=== PATIENT | female | born 1985 | race Caucasian/White ===

== ENCOUNTER 2016-11-13 15:18 | Emergency (ER) | payer SELFPAY ==
[~2016-11-13] VITALS: Ht 165.1 cm; Wt 90.7 kg
[~2016-11-13 15:18] MED LIST: COL100 PO; FLAGYL500 MG PO; LAC PO; NORCO1 TA2 PO
[2016-11-13 16:28] VITALS: BP 107/68
== END 2016-11-13 16:28 | disposition home or self-care (01) ==
LOC: ED 15:18
DX: H66.92 Otitis media, unspecified, left ear (principal)

== ENCOUNTER 2017-05-04 16:01 | Emergency (ER) | payer MEDICAID ==
[2017-05-04 17:51] VITALS: BP 129/55
== END 2017-05-04 17:51 | disposition home or self-care (01) ==
LOC: ED 16:01
DX: S39.011A Strain of muscle, fascia and tendon of abdomen, initial encounter (principal); X58.XXXA Exposure to other specified factors, initial encounter; Y93.89 Activity, other specified; Y92.89 Other specified places as the place of occurrence of the external cause; Y99.8 Other external cause status

== ENCOUNTER 2017-05-25 20:47 | Emergency (ER) | payer MEDICAID ==
[2017-05-25 21:09] VITALS: BP 105/72
[2017-05-26] MEDS ORDERED: FER300 PO (14:50)
[2017-05-26] MEDS ORDERED: VITC PO (14:51)
== END 2017-05-25 22:29 | disposition left against medical advice (07) ==
LOC: ED 20:47
DX: Z53.21 Procedure and treatment not carried out due to patient leaving prior to being seen by health care provider (principal)

== ENCOUNTER 2017-05-25 23:26 | Inpatient (IN) | payer MEDICAID ==
[~2017-05-25] VITALS: Ht 162.6 cm; Wt 91.3 kg
[2017-05-26 00:56] LABS: BASOPHIL % 0.4 % (0-2); PLATELET COUNT 342 x10^3mcL (130-400)
[2017-05-26 00:58] LABS: UA SPECIFIC GRAVITY >=1.030 (1.005-1.035); microscopic required? YES; urine erythrocyte 3+ (NEGATIVE)
[2017-05-26 02:51] LABS: CALCIUM 8.3 mg/dL (8.5-10.1); CARBON DIOXIDE 29.2 mmol/L (21-32); CHLORIDE SERUM 104 mmol/L (98-107); CREATININE SERUM 0.6 mg/dL (0.6-1.0); GFR1 > 60 mL/min; GLUCOSE SERUM 101 mg/dL (74-106); POTASSIUM SERUM 3.4 mmol/L (3.5-5.1); SODIUM SERUM 141 mmol/L (136-145)
[2017-05-26 02:56] LABS: ALBUMIN 3.1 g/dL (3.4-5.0); ALKALINE PHOSPHATASE 69 U/L (46-116); ALT/SGPT 18 U/L (14-59); AST/SGOT 16 U/L (15-37); BILIRUBIN TOTAL 0.27 mg/dL (0.20-1.00); TOTAL PROTEIN, SERUM 6.8 g/dL (6.4-8.2)
[2017-05-26 04:22] VITALS: BP 113/55
[2017-05-26 04:34] VITALS: BP 113/55
[2017-05-26 04:59] LABS: CHOLESTEROL/HDL RATIO 3.8; MAGNESIUM 1.7 mg/dL (1.8-2.4); PHOSPHOROUS 4.3 mg/dL (2.5-4.9)
[2017-05-26 05:01] LABS: AMPHETAMINE QUAL UR POSITIVE (NEG <=1000)
[2017-05-26 05:03] LABS: T3 TOTAL 1.03 ng/mL
[2017-05-26 05:08] LABS: FREE T4 0.85 ng/dL (0.76-1.46); FREE THYROXINE INDEX 2.3 ug/dL (1.4-4.5); T4(THYROXINE) 6.4 ug/dL (4.7-13.3)
[2017-05-26 08:42] VITALS: BP 107/68
[2017-05-26 12:15] VITALS: BP 106/76
[2017-05-26 13:52] LABS: BASOPHIL % 0.4 % (0-2); PLATELET COUNT 300 x10^3mcL (130-400)
[2017-05-26 13:53] LABS: RED CELL DISTRIBUTION WIDTH 16.9 % (11.5-14.5)
[2017-05-26] MEDS ORDERED: FER300 PO (14:50)
[2017-05-26] MEDS ORDERED: VITC PO (14:51)
[2017-05-26 15:14] VITALS: BP 106/76
== END 2017-05-26 20:29 | disposition home or self-care (01) | DRG 561 ==
LOC: ED 23:26 → DU 05-26 03:37
PROVIDERS: Emergency Medicine; Family Medicine Sports Medicine; ADMIT Family Medicine
DX: O72.2 Delayed and secondary postpartum hemorrhage (principal); N17.0 Acute kidney failure with tubular necrosis; O90.81 Anemia of the puerperium; D62 Acute posthemorrhagic anemia; O25.3 Malnutrition in the puerperium; E87.6 Hypokalemia; F15.10 Other stimulant abuse, uncomplicated; F12.10 Cannabis abuse, uncomplicated; O99.215 Obesity complicating the puerperium; E66.9 Obesity, unspecified; Z68.34 Body mass index [BMI] 34.0-34.9, adult
CPT/HCPCS: 84439; J3475; J7030

== ENCOUNTER 2017-05-27 15:49 | Inpatient (IN) | payer MEDICAID ==
[~2017-05-27] VITALS: Ht 162.6 cm; Wt 96.2 kg
[~2017-05-27 15:49] MED LIST changes: +FER300 PO; +VITC PO
--- NOTE | 2017-05-27 15:58 | NUR ---
PT WHEELED BACK FROM TRIAGE COOL, PALE, DIAPHORETIC. PT GAVE 3 WEEKS AGO AND HAD ONLY BEEN SPOTTING SINCE GIVING UNTIL Tuesday05/25/17 WHEN PT BEGAN PASSING CLOTS AND "A LOT OF BLOOD" PER PTS FATHER. PT CAME IN TO [facility] [place] [facility] AND WAS ADMITTED. PER PT BLEEDING STOPPED TUESDAY AND WAS D/C'ED FROM [facility] [place] TUESDAY. PT REPORTS TODAY SHE WAS SLEEPING AND WOKE UP SUDDENLY WHEN BLEEDING BEGAN AGAIN. PT REPORTS GOING THROUGH 3 DIAPERS IN AN HOUR BEFORE COMING IN TO [facility] [place] ED AGAIN. UPON ARRIVAL PT HAD PASSED MANY LARGE CLOTS, WAS HYPOTENSIVE, WEAK, AND FATUGUED. PT DENIES ALL PAIN, BUT STATES, "I FELT WEAK AND TIRED." PT DENIES CP, DENIES ABD PAIN, DENIES SOB, DENIES N/V. CLOTHES CUT OFF, CHANGED INTO GOWN, CONNECTED TO OXYGEN AND CARDIORESP MONITORS, DR SMITH AT BEDSIDE FOR MSE AND EVAL AND IMMEDIATE TREATMENT.
--- NOTE | 2017-05-27 16:22 | NUR ---
DR SMITH PERFORMING PELVIC AT BEDSIDE. MANY LARGE CLOTS PULLED FROM VAGINAL CANAL, BLEEDING SLOWED AFTER CLOT REMOVAL.
--- NOTE | 2017-05-27 16:45 | NUR ---
LAB AT BEDSIDE FOR BLOOD DRAW.
[2017-05-27 16:53] LABS: BASOPHIL % 0.5 % (0-2); PLATELET COUNT 277 x10^3mcL (130-400)
[2017-05-27 17:02] LABS: RED CELL DISTRIBUTION WIDTH 17.3 % (11.5-14.5)
--- NOTE | 2017-05-27 17:02 | NUR ---
BLOOD TRANSFUSION STARTED, DUAL VERIFICATION WITH AWA MARTINEZ RN. PRE VITALS @ 1700: BP 97/51, HR 83, RESP 23, SAT 98% ON OXYGEN, TEMP 97.8 ORAL
--- NOTE | 2017-05-27 17:17 | NUR ---
15 MINUTES AFTER START OF TRANSFUSION VITALS @ 1715: BP 85/54, HR 80, RR 20, SAT 99% ON OXYGEN, TEMP 97.7 ORAL PT DENIES ANY ITCHINESS, DENIES SOB, DENIES FEELING FLUSHED. STATES "I'M STILL JUST TIRED." DENIES PAIN.
--- NOTE | 2017-05-27 17:17 | NUR ---
15 MINUTES AFTER START OF TRANSFUSION VITALS @ 1717: BP 85/54, HR 80, RR 20, SAT 99% ON OXYGEN, TEMP 97.7 ORAL PT DENIES ANY ITCHINESS, DENIES SOB, DENIES FEELING FLUSHED. STATES "I'M STILL JUST TIRED." DENIES PAIN.
--- NOTE | 2017-05-27 17:20 | NUR ---
US AT BEDSIDE.
--- NOTE | 2017-05-27 17:35 | NUR ---
RESIDENT FINALLY CALLED BACK & WAS NOTIFIED OF PT'S CONDITION. RESIDENT TOLD DR SMITH THAT THEY WILL TRY TO GET A HOLD OF DR. STANTON. DR STANTON FINALLY CALLED BACK & SPOKE W/ DR SMITH & WAS INFORMED OF BLOOD LOSS, CLOTS, LOW BP & THAT PT IS RECEIVING BLOOD. DR. STANTON WOULD LIKE TO BE CALLED BACK W/ OFFICIAL ULTRASOUND REPORT. [facility] ENGINEER NOTIFIED OF ABOVE.
--- NOTE | 2017-05-27 17:55 | NUR ---
CALL FROM DR. EDMONDS, ANESTHESIA. I UPDATED HER ON PT'S BLOOD LOSS/CLOTS, CURRENT VITALS & FACT THAT PT IS RECEIVING TRANSFUSION. I ALSO LET HER KNOW THAT WE SPOKE W/ DR. STANTON BUT HE IS WAITING FOR OFFICIAL ULTRASOUND REPORT.
--- NOTE | 2017-05-27 18:01 | NUR ---
BLOOD ADMINISTRATION COMPLETE VITALS @ 1801: BP 101/55, HR 80, RR 20, SAT 98% ON OXYGEN, TEMP 97.7 ORAL PT DENIES ITCHINESS, DENIES CP, DENIES SOB, DENIES LEWIS. PT RESTING COMFORTABLY.
--- NOTE | 2017-05-27 18:20 | NUR ---
DR. SMITH CALLED DR. STANTON W/ OFFICIAL ULTRASOUND REPORT. NO PLANS FOR SURGERY. TRIED CALLING OR; NO ANSWER. CALLED [facility] & LET HER KNOW WHAT DR. STANTON SAID & THAT I WAS NOT ABLE TO GET A HOLD OF SURGERY TO LET THEM KNOW THAT PT IS NOT GOING TO OR. I ALSO NOTIFIED [facility] THAT WE HAVE PAGE OUT TO RESIDENT REQUEST THAT PT BE ADMITTED TO ICU, NOT TELE.
--- NOTE | 2017-05-27 18:20 | NUR ---
LAB AT BEDSIDE FOR BLOOD DRAW.
[2017-05-27 19:05] LABS: MAGNESIUM 1.6 mg/dL (1.8-2.4); PHOSPHOROUS 3.2 mg/dL (2.5-4.9)
--- NOTE | 2017-05-27 19:06 | NUR ---
REPORT GIVEN TO DEMARIO ARTEAGA TO ASSUME CARE OF PT POST TRANSFER TO ICU.
--- NOTE | 2017-05-27 19:06 | NUR ---
RECEIVED REPORT FROM JENNI BOONE ED RN, WILL ENDORSE CARE UPON TRANSFER.
[2017-05-27 19:07] LABS: CHOLESTEROL/HDL RATIO 3.9
[2017-05-27 19:15] LABS: IRON 24 ug/dL (50-170); TOTAL IRON BINDING CAPACITY 235 ug/dL (250-450)
--- NOTE | 2017-05-27 19:25 | NUR ---
RECEIVED PT FROM ED WITH RN MELY, PT TRANSPORTED ON GURNEY, PT SLID SELF TO BED. PT AOX4. EYES OPEN SPONTANEOUSLY, NO HEADACHE. GENERALIZED WEAKNESS. FULL PASSIVE ROM, FRANKEL ACTIVE ROM DUE TO WEAKNESS. VITAL SIGNS STABLE. RESPIRATIONS EQUAL AND UNLABORED, NO DISTRESS. CHEST WALL STABLE, NO CP, DIZZINESS, OR SYNCOPE. SKIN APPROPRIATE FOR ETHNICITY, WARM AND DRY, CAP REFILL <3, PULSES PALPABLE. NO CONTRACTURES OR DEFORMITIES. ABD SOFT, ROUND, NONTENDER, NO BM. DENIES LABIAL EDEMA, HAS VAGINAL BLEED. CALM AND COOPERATIVE. WILL CONTINUE TO MONITOR.
[2017-05-27 20:08] VITALS: BP 99/72
--- NOTE | 2017-05-27 22:28 | NUR ---
300 UNITS PRBC'S INFUSING AT 90 ML/HR. NO S/S OF INFILTRATTION OR ADVERSE REACTIONS AT THIS TIME. WILL CONTINUE TO MONITOR.
--- NOTE | 2017-05-27 22:43 | NUR ---
VITAL SIGNS REASSESSED. NO ADVERSE REACTIONS, TIRATED BLOOD TO 125 ML/HR. WILL CONTINUE TO MONITOR.
--- NOTE | 2017-05-27 23:15 | NUR ---
REPORT GIVEN TO OR TEAM, WILL ENDORSE CARE UPON ARRIVAL.
--- NOTE | 2017-05-27 23:37 | NUR ---
OR TRANSPORTED PT FOR PROCEDURE.
[2017-05-28] VITALS (7 sets, daily range): BP systolic 91–107; BP diastolic 53–69; Ht 162.6 cm; Wt 96.2 kg
--- NOTE | 2017-05-28 01:20 | NUR ---
OR TEAM TRANSPORTED PT BACK TO ICU. RECEIVED ANCEF 1 GRAM IN OR. BLOOD INFUSED IN OR. BP 104/72 MAP 82. HR 74. RESP 12. SPO2 99%. WILL CONTINUE TO MONITOR PT.
--- NOTE | 2017-05-28 01:20 | NUR ---
PERIPAD STILL CLEAR. WILL CONITINUE TO MONITOR.
--- NOTE | 2017-05-28 05:20 | NUR ---
DR. PATEL STATED THE PT COULD HAVE ICE CHIPS UNTIL DIET IS CHANGED. WILL CONTINUE TO MONITOR PT AND PROVIDE CARE PER PROTOCOL.
[2017-05-28 05:33] LABS: BASOPHIL % 0.4 % (0-2); PLATELET COUNT 225 x10^3mcL (130-400)
[2017-05-28 05:43] LABS: RED CELL DISTRIBUTION WIDTH 17.7 % (11.5-14.5)
[2017-05-28 05:49] LABS: CALCIUM 7.1 mg/dL (8.5-10.1); CARBON DIOXIDE 27.4 mmol/L (21-32); CHLORIDE SERUM 110 mmol/L (98-107); CREATININE SERUM 0.4 mg/dL (0.6-1.0); GFR1 > 60 mL/min; GLUCOSE SERUM 89 mg/dL (74-106); POTASSIUM SERUM 3.6 mmol/L (3.5-5.1); SODIUM SERUM 142 mmol/L (136-145)
--- NOTE | 2017-05-28 07:00 | NUR ---
PROVIDED REPORT TO NURSE SCHWARZ. ANSWERED ALL QUESTIONS. WILL ENDORSE CARE.
--- NOTE | 2017-05-28 07:10 | NUR ---
RECEIVED REPORT FROM NOC SHIFT RN AND DEMARIO. ALL QUESTIONS AND CONCERNS ADDRESSED AT THIS TIME. WILL ASSUME ALL CARE.
--- NOTE | 2017-05-28 07:40 | NUR ---
RECEIVED PT SLEEPING IN BED. PT AROUSABLE TO VERBAL STIMULI, PT A&O X 4, SPEECH CLEAR. PT DENIES ANY PAIN BESIDES MINIMAL TENDERNESS TO ABD AREA. PT ON RA SATING WELL AT 100%. PT HAS CLEAR LUNG SOUNDS AUSCULTATED THROUGHOUT ALL LUNG BASES. PT HAS R CHEST IV INFUSING NS 50 ML/HR AND RFA PATENT AND FLUSHING. PT ON COOK ROOM SUPERVISOR SHOWING NSR, OCCASIONALLY JUNCTIONAL. PT WITH VAGINAL BLEEDING S/P D AND C, NO CHANGE IN PAD AT THIS TIME. WILL CONTINUE TO MONITOR PT AT THIS TIME.
--- NOTE | 2017-05-28 08:13 | NUR ---
ASSISTED PT TO BEDSIDE COMMODE. GAIT AND BALANCE ARE STEADY. PT HAS MINIMAL BLEEDING AND SCANT CLOTS NOTED IN URINE. PER PT DOES NOT FEEL DIZZY. WILL CONTINUE TO MONITOR PT.
--- NOTE | 2017-05-28 09:45 | NUR ---
DR. COLLINS, RESIDENTS, BILL RECAPITULATION CLERK AND PRIMARY RN AT BEDSIDE FOR MORNING ROUNDS. PLAN OF CARE DISCUSSED, PT IN AGREEMENT. WILL CONT TO MONITOR.
--- NOTE | 2017-05-28 14:53 | NUR ---
REPORT GIVEN TO [facility] RN DUSTY, ALL QUESTIONS AND CONCERNS ADDRESSED AT THIS TIME. WILL ENDORSE ALL CARE UPON ARRIVAL TO ROOM 257A.
--- NOTE | 2017-05-28 15:21 | NUR ---
RECEIVED PT FROM ICU VIA [facility] ALERT AND ORIENTED X4. DENIES ANY HEADACHE OR DIZZINESS. DENIES ANY PAIN OR DISCOMFORT. REPORTS ONLY SMALL AMOUNT OF VAGINAL BLEEDING AT THIS TIME. DENIES ANY GI UPSET OR ABD PAIN. AMBULATORY. SKIN CDI. INSTRUCTED TO USE CALL LIGHT WHEN IN NEED OF ANY ASSISTANCE.
--- NOTE | 2017-05-28 19:03 | NUR ---
PT LYING IN BED, DENIES ANY PAIN, DISCOMFORT OR DIZZINESS. CALL LIGHT WITHIN REACH.
--- NOTE | 2017-05-28 19:12 | NUR ---
RECEIVED PT FROM PREVIOUS SHIFT. PT DROWSY/AROUSABLE. RR EVEN AND UNLABORED. FAMILY AT BEDSIDE. IV PATENT AND INFUSING NS AT 50ML/HR TO RAC. CALL LIGHT WITHIN REACH, BED IN LOW POSITION. WILL CONTINUE TO MONITOR.
--- NOTE | 2017-05-29 01:31 | NUR ---
PT RESTING AT THIS TIME IN NO ACUTE DISTRESS. RR EVEN AND UNLABORED. IV PATENT. CALL LIGHT WITHIN REACH, BED IN LOW POSITION. WILL CONTINUE TO MONITOR.
[2017-05-29 05:13] VITALS: BP 106/64
--- NOTE | 2017-05-29 07:17 | NUR ---
RECEIVED Pt. AAOX4 RESPIRATIONS EVEN AND UNLABORED RA. DENIES PAIN/DISCOMFORT. NO DISTRESS NOTED. MEDSURG Pt. IVF RUNNING TO IV RAC PATENT AND INTACT. Pt. STILL HAVING SCANT VAGINAL BLEEDING. BED LOW/LOCKED. CALL LIGHT IN REACH.
--- NOTE | 2017-05-29 09:00 | NUR ---
MADE ROUNDS WITH DR. COLLINS AND MEDICINE TEAM, Pt. POSSIBLE DISCHARGE TODAY AND AGREED WITH PLAN OF CARE.
[2017-05-29 09:11] VITALS: BP 96/60
[2017-05-29 09:18] LABS: BASOPHIL % 0.6 % (0-2); PLATELET COUNT 227 x10^3mcL (130-400)
[2017-05-29 09:21] LABS: RED CELL DISTRIBUTION WIDTH 17.9 % (11.5-14.5)
[2017-05-29 09:38] LABS: CARBON DIOXIDE 32.3 mmol/L (21-32); CHLORIDE SERUM 108 mmol/L (98-107); CREATININE SERUM 0.6 mg/dL (0.6-1.0); GFR1 > 60 mL/min; GLUCOSE SERUM 111 mg/dL (74-106); POTASSIUM SERUM 3.4 mmol/L (3.5-5.1); SODIUM SERUM 142 mmol/L (136-145)
[2017-05-29] MEDS ORDERED: LEVAQUIN750 MG PO (10:18)
[2017-05-29] MEDS ORDERED: BD LACTINEX1.4 MG PO (10:19)
[2017-05-29] MEDS ORDERED: PROVERA10 MG PO (10:20)
[2017-05-29] MEDS ORDERED: KLOR-CON M2020 MEQ PO (10:20)
[2017-05-29] MEDS ORDERED: MAGNESIUM OXID400 MG PO (10:21)
[2017-05-29] MEDS ORDERED: NATURAL IRON65 MG PO (10:22)
[2017-05-29 10:53] VITALS: BP 96/60
--- NOTE | 2017-05-29 12:43 | NUR ---
Pt. AAOX4, RESPIRATIONS EVEN AND UNLABORED RA. DENIES PAIN/DISCOMFORT. NO DISTRESS NOTED. ALL RX AND DISCHARGE INSTRUCTIONS EXPLAINED AND Pt. VERBALIZED UNDERSTANDING. Pt. INSTRUCTED TO FOLLOW UP WITH DR. BARTH AND DR. STANTON POST DISCHARGE AND VERBALIZED UNDERSTANDING. IV RIGHT AC REMOVED WITH CATH INTACT. Pt. LEFT WITH ALL BELONGINGS.
== END 2017-05-29 12:45 | disposition home or self-care (01) | DRG 544 ==
LOC: ED 15:49 → IC 18:26 → DU 05-28 15:11 → MU 05-28 15:39
PROVIDERS: Emergency Medicine; Family Medicine; Obstetrics & Gynecology; ADMIT Family Medicine
PROC: 10D17Z9 Manual Extraction of Products of Conception, Retained, Via Natural or Artificial Opening (ICD-10-PCS; principal; 2017-05-27 23:30)
DX: O72.2 Delayed and secondary postpartum hemorrhage (principal); N17.0 Acute kidney failure with tubular necrosis; E44.0 Moderate protein-calorie malnutrition; D62 Acute posthemorrhagic anemia; E83.51 Hypocalcemia; E83.42 Hypomagnesemia; E87.6 Hypokalemia; Z68.36 Body mass index [BMI] 36.0-36.9, adult
CPT/HCPCS: 84439; C1758; J0690; J2210; J2250; J2270; J2590; J3010; J3490; J7030; J7040; P9016; Q0092

== ENCOUNTER 2017-12-22 17:47 | Emergency (ER) | payer MEDICAID ==
[~2017-12-22] VITALS: Ht 157.5 cm; Wt 104.3 kg
[~2017-12-22 17:47] MED LIST changes: +BD LACTINEX1.4 MG PO; +KLOR-CON M2020 MEQ PO; +LEVAQUIN750 MG PO; +MAGNESIUM OXID400 MG PO; +NATURAL IRON65 MG PO; +PROVERA10 MG PO
[2017-12-22 18:17] VITALS: Ht 157.5 cm; Wt 104.3 kg
[2017-12-22 19:15] LABS: BASOPHIL % 0.1 % (0-2); PLATELET COUNT 248 x10^3mcL (130-400); RED CELL DISTRIBUTION WIDTH 13.2 % (11.5-14.5)
[2017-12-22 19:25] LABS: CALCIUM 7.5 mg/dL (8.5-10.1); CARBON DIOXIDE 28.4 mmol/L (21-32); CHLORIDE SERUM 105 mmol/L (98-107); CREATININE SERUM 0.7 mg/dL (0.6-1.0); GFR1 > 60 mL/min; GLUCOSE SERUM 114 mg/dL (74-106); POTASSIUM SERUM 3.2 mmol/L (3.5-5.1); SODIUM SERUM 140 mmol/L (136-145)
[2017-12-22 19:29] LABS: ALKALINE PHOSPHATASE 46 U/L (46-116); ALT/SGPT 17 U/L (14-59); AST/SGOT 16 U/L (15-37); BILIRUBIN TOTAL 0.5 mg/dL (0.20-1.00); LIPASE 67 IU/L (73-393); TOTAL PROTEIN, SERUM 6.4 g/dL (6.4-8.2)
[2017-12-22 19:36] LABS: ALBUMIN 2.9 g/dL (3.4-5.0)
[2017-12-22 20:44] VITALS: BP 114/55
== END 2017-12-22 20:15 | disposition home or self-care (01) ==
LOC: ED 17:47
PROVIDERS: Emergency Medicine
DX: K52.9 Noninfective gastroenteritis and colitis, unspecified (principal)
CPT/HCPCS: J2405; J7030